=== PATIENT | male | born 1925 | race Caucasian/White ===

== ENCOUNTER 2017-04-18 23:23 | Emergency (ER) | payer MEDICARE ==
[~2017-04-18] VITALS: Ht 170.2 cm; Wt 81.6 kg
[2017-04-18 23:30] VITALS: BP 164/69
[2017-04-19] VITALS: BP 143/45
--- NOTE | 2017-04-19 | Emergency Room Report ---
History of Present Illness General Chief Complaint: Chest Pain Source: Patient, Family Member, EMS Present Illness HPI 89-year-old male, history of pacemaker, hypertension, diabetes, p/w syncopal episode. Patient's states that he hurt patient become quiet, went into the room, found patient unconscious sitting on the chair, woke him up and he did not recall what happened. There was no LOC Patient does not remember event, but he is awake and alert right now There was no seizure like activity, tongue biting, urinary incontinence, blurry vision, or [place]. Pt has been eating/drinking well. Denies recent fever, chills, n/v/d. Allergies: Coded Allergies: No Known Allergies (Unverified , 04/18/17) Patient History Past Medical History: see triage record Past Surgical History: none Pertinent Family History: none Reviewed Nursing Documentation: PMH: Agreed, PSxH: Agreed Nursing Documentation-PMH Hx Hypertension: Yes Hx Pacemaker: Yes Hx Diabetes: Yes Hx Cerebrovascular Accident: Yes Review of Systems All Other Systems: negative except mentioned in HPI Physical Exam Vital Signs Date Time Temp Pulse Resp B/P (MAP) Pulse Ox O2 Delivery O2 Flow Rate FiO2 04/18/17 23:17 97.4 60 18 164/69 99 Non-Rebreather 15.0 97.3 Sp02 EP Interpretation: reviewed, normal General Appearance: normal inspection, well appearing, no apparent distress, alert, GCS 15, non-toxic Head: normocephalic, atraumatic Eyes: bilateral eye normal inspection, bilateral eye PERRL, bilateral eye EOMI ENT: normal ENT inspection, normal pharynx, normal voice, moist mucus membranes Neck: normal inspection, full range of motion, supple Respiratory: normal inspection, lungs clear, normal breath sounds, no respiratory distress, no retraction, no wheezing, speaking full sentences, chest symmetrical Cardiovascular #1: normal inspection, regular rate, rhythm, normal capillary refill Cardiovascular #2: 2+ radial (R), 2+ radial (L) Gastrointestinal: normal inspection, non tender, soft, non-distended, no guarding Genitourinary: no CVA tenderness Musculoskeletal: normal inspection, back normal, normal range of motion, non- tender Neurologic: normal inspection, alert, oriented x3, responsive, carpentry instructor III-XII nml as tested, motor strength/tone normal, sensory intact, normal gait, speech normal Psychiatric: normal inspection, judgement/insight normal, memory normal Skin: normal inspection, normal color, no rash, warm/dry, well hydrated, normal turgor Medical Decision Making Diagnostic Impression: Primary Impression: Syncope Additional Impressions: Hyperkalemia Renal failure UTI (urinary tract infection) ER Course 89-year-old male with syncopal episode DDX: Vasovagal vs. orthostatic / hypovolemic/dehydration vs. cardiac arrhythmia (SVT , Afib) vs. cardiac (, ACS) vs. PE vs. metabolic (hypoglycemia, hypoxia), vs neuro (seizure, CVA, intracranial bleed) Plan: bgm, cbc, bmp, ekg, cxr consider IVF ER course: Patient has remained stable during ED stay. No further syncopal episodes +hyperkalemia cocktail ceftriaxone given for UTI at his baseline mental status Disposition: Patient requires admission to telemetry. XFER to [facility] receiving physician Dr Corina szymanski [phone] Please note that this Emergency Department Report was dictated using [employer] technology software, occasionally this can lead to erroneous entry secondary to interpretation by the dictation equipment EKG Diagnostic Results EP Interpretation: Yes Rate: normal Rhythm: Atrial paced rhythm ST Segments: T-wave flattening lateral leads ASA given to patient: No Rhythm Strip EP Interpretation: Yes Rate: 60 Rhythm: NSR, no PVCs, no ectopy Chest X-ray CXR: Ordered: Yes 1 view Indication: Syncope EP interpretation: Yes Interpretation: No consolidation, no effusion, no PTX, no acute cardiopulmonary disease Impression: No acute disease Electronically signed by Edward Bennett MD Laboratory Tests Test 04/19/17 00:10 04/19/17 00:15 White Blood Count 6.4 K/UL (4.8-10.8) Red Blood Count 3.63 M/UL (4.70-6.10) L Hemoglobin 11.5 G/DL (14.2-18.0) L Hematocrit 33.9 % (42.0-52.0) L Mean Corpuscular Volume 93 FL (80-99) Mean Corpuscular Hemoglobin 31.7 PG (27.0-31.0) H Mean Corpuscular Hemoglobin Concent 34.0 G/DL (32.0-36.0) Red Cell Distribution Width 13.3 % (11.6-14.8) Platelet Count 182 K/UL (150-450) Mean Platelet Volume 9.0 FL (6.5-10.1) Neutrophils (%) (Auto) 56.4 % (45.0-75.0) Lymphocytes (%) (Auto) 32.5 % (20.0-45.0) Monocytes (%) (Auto) 7.6 % (1.0-10.0) Eosinophils (%) (Auto) 2.2 % (0.0-3.0) Basophils (%) (Auto) 1.4 % (0.0-2.0) Prothrombin Time 21.7 SEC (9.30-11.50) H Prothrombin Time INR 2.1 (0.9-1.1) H PTT 33 SEC (23-33) Sodium Level 136 MMOL/L (136-145) Potassium Level 6.1 MMOL/L (3.5-5.1) *H Chloride Level 106 MMOL/L (98-107) Carbon Dioxide Level 22 MMOL/L (21-32) Anion Gap 8 mmol/L (5-15) Blood Urea Nitrogen 40 mg/dL (7-18) H Creatinine 1.8 MG/DL (0.55-1.30) H Estimate Glomerular Filtration Rate mL/min (>60) Glucose Level 328 MG/DL (74-106) H Calcium Level 7.8 MG/DL (8.5-10.1) L Total Bilirubin 0.3 MG/DL (0.2-1.0) Aspartate Amino Transferase (AST) 23 U/L (15-37) Alanine Aminotransferase (ALT) 38 U/L (12-78) Alkaline Phosphatase 138 U/L (46-116) H Troponin I 0.025 ng/mL (0.000-0.056) Pro-B-Type Natriuretic Peptide 994 pg/mL (0-125) H Total Protein 6.9 G/DL (6.4-8.2) Albumin 3.0 G/DL (3.4-5.0) L Globulin 3.9 g/dL Albumin/Globulin Ratio 0.8 (1.0-2.7) L Urine Color Yellow Urine Appearance Slightly cloudy Urine pH 5 (4.5-8.0) Urine Specific [place] 1.020 (1.005-1.035) Urine Protein 2+ (NEGATIVE) H Urine Glucose (UA) 3+ (NEGATIVE) H Urine Ketones Negative (NEGATIVE) Urine Occult Blood 2+ (NEGATIVE) H Urine Nitrite Negative (NEGATIVE) Urine Bilirubin Negative (NEGATIVE) Urine Urobilinogen Normal MG/DL (0.0-1.0) Urine Leukocyte Esterase 3+ (NEGATIVE) H Urine RBC 2-4 /HPF (0 - 0) H Urine WBC Tntc /HPF (0 - 0) H Urine Squamous Epithelial Cells Few /LPF (NONE/OCC) Urine Bacteria Many /HPF (NONE) H Last Vital Signs Date Time Temp Pulse Resp B/P (MAP) Pulse Ox O2 Delivery O2 Flow Rate FiO2 04/18/17 23:17 97.4 60 18 164/69 99 Non-Rebreather 15.0 97.3 Disposition: ADMITTED INPATIENT Condition: Edward Fuller M.D. Apr 19, 2017 00:00
[2017-04-19 00:34] LABS: BASOPHILS % (AUTO) 1.4 % (0.0-2.0); EOSINOPHILS % (AUTO) 2.2 % (0.0-3.0); HEMATOCRIT 33.9 % (42.0-52.0); HEMOGLOBIN 11.5 G/DL (14.2-18.0); LYMPHOCYTES % (AUTO) 32.5 % (20.0-45.0); MEAN CORPUSCULAR VOLUME 93 FL (80-99); MONOCYTES % (AUTO) 7.6 % (1.0-10.0); NEUTROPHILS % (AUTO) 56.4 % (45.0-75.0); PLATELET COUNT 182 K/UL (150-450); RED BLOOD COUNT 3.63 M/UL (4.70-6.10); RED CELL DISTRIBUTION WIDTH 13.3 % (11.6-14.8); WHITE BLOOD COUNT 6.4 K/UL (4.8-10.8)
[2017-04-19 00:38] LABS: BILIRUBIN, URINE NEGATIVE (NEGATIVE); GLUCOSE, URINE (UA) 3+ (NEGATIVE); KETONES,URINE NEGATIVE (NEGATIVE); LEUKOCYTE ESTERASE ,URINE 3+ (NEGATIVE); NITRITE,URINE NEGATIVE (NEGATIVE); PH,URINE 5 (4.5-8.0); PROTEIN,URINE 2+ (NEGATIVE); UROBILINOGEN,URINE NORMAL MG/DL (0.0-1.0)
[2017-04-19 00:44] LABS: INR 2.1 (0.9-1.1)
[2017-04-19 00:52] LABS: APPEARANCE,URINE SLIGHTLY CLOUDY; COLOR,URINE YELLOW
[2017-04-19 00:53] LABS: ALANINE AMINOTRANSFERASE 38 U/L (12-78); ALBUMIN/GLOBULIN RATIO 0.8 (1.0-2.7); ALKALINE PHOSPHATASE 138 U/L (46-116); ANION GAP 8 mmol/L (5-15); ASPARTATE AMINO TRANSFERASE 23 U/L (15-37); BILIRUBIN,TOTAL 0.3 MG/DL (0.2-1.0); BLOOD UREA NITROGEN 40 mg/dL (7-18); CALCIUM 7.8 MG/DL (8.5-10.1); CARBON DIOXIDE 22 MMOL/L (21-32); CHLORIDE 106 MMOL/L (98-107); CREATININE 1.8 MG/DL (0.55-1.30); SODIUM 136 MMOL/L (136-145)
[2017-04-19 00:57] LABS: POTASSIUM 6.1 MMOL/L (3.5-5.1)
[2017-04-19] MEDS ORDERED: Sodium Bicarbonate 50ml Carp IV ONE (01:15)
[2017-04-19] MEDS ORDERED: Calcium Gluconate 1gm/10ml vial IVP ONE (01:15)
[2017-04-19] MEDS ORDERED: cefTRIAXone 1 GM in NS 55 ML IVPB ONE (01:15)
[2017-04-19 01:47] VITALS: BP 157/52
[2017-04-19 03:15] VITALS: BP 152/54
[2017-04-19 04:00] VITALS: BP 152/54
--- NOTE | 2017-04-19 09:54 | Diagnostic Imaging Report ---
Indication: Chest pain Technique: One view of the chest Comparison: none Findings: Lungs and pleural spaces are clear. There is a left chest pacemaker. The heart size is normal. The aorta is calcified Impression: No acute process
--- NOTE | 2017-04-21 15:09 | Cardiology Report ---
APPROVED REPORT EKG Measurement Heart [id number] Atrial Pacemaker Nonspecific ST and T wave abnormality Abnormal ECG
== END 2017-04-19 04:00 | disposition other institution (70) ==
LOC: EDBD 23:23 → EMR 23:34 → EDBEDREQSVC 04-19 01:05 → EDBEDREQ 04-19 01:05 → EDBEDREQSVC 04-19 01:06 → EDBEDREQ 04-19 01:06 → EMR 04-19 04:00
DX: R55 Syncope and collapse (principal); E87.5 Hyperkalemia; N39.0 Urinary tract infection, site not specified; N19 Unspecified kidney failure; E11.9 Type 2 diabetes mellitus without complications; Z95.0 Presence of cardiac pacemaker; I63.9 Cerebral infarction, unspecified
CPT/HCPCS: 36415; 71045; 80053; 81003; 83880; 84484; 85025; 85610; 85730; 87086; 87181; 93005; 96365; 96375; 99285; J0610; J0696; J1815